=== PATIENT | male | born 1950 | race African-American/Black ===

== ENCOUNTER 2024-06-28 10:35 | Inpatient (IN) | payer OTHER ==
[2024-06-28 11:50] LABS: VENOUS BASE EXCESS 4.2 mmol/L (-2-2); VENOUS O2 SATURATION 32.9 % (70-80); VENOUS PCO2 50.2 mmHg (38-52); VENOUS PH 7.395 (7.310-7.410)
[2024-06-28] MEDS: ACETAMINOPHEN 1000 MG/100 ML BAG IVPB ONE (11:58)
[2024-06-28] MEDS: LACTATED RINGERS SOLUTION 1000 ML INFUS.BAG IV ONE ×2 (11:58→16:33)
[2024-06-28 12:02] LABS: INR 1.17 (0.83-1.09); PROTHROMBIN TIME (PATIENT) 13.4 SEC (9.7-13.0)
[2024-06-28 12:05] LABS: ACTIVATED PTT 25.8 SECONDS (25.2-36.5)
[2024-06-28 12:09] LABS: HEMATOCRIT 36.1 % (35.4-49); HEMOGLOBIN 12.2 GM/dL (11.7-16.9); MCH 30.7 pg (25.7-33.7); MCHC 33.8 g/dl (32.0-35.9); MEAN CELL VOLUME 90.8 fl (80-96); MEAN PLT VOLUME 8.7 fl (7.5-11.1); PLATELET COUNT 305 10^3/uL (134-434); RBC 3.97 M/mm3 (4.00-5.60); RDW 14.9 % (11.9-15.9); WHITE BLOOD COUNT 10.6 K/mm3 (4.0-10.0)
[2024-06-28 12:19] LABS: CHLORIDE 81 mmol/L (98-107); POTASSIUM 4.4 mmol/L (3.5-5.1); SODIUM 123 mmol/L (136-145)
[2024-06-28 12:21] LABS: CALCIUM 9.2 mg/dL (8.5-10.1)
[2024-06-28 12:22] LABS: ALBUMIN 2.4 g/dl (3.4-5.0); ANION GAP 11 mmol/L (4-13); BLOOD UREA NITROGEN 71.2 mg/dL (7-18); CO2 30 mmol/L (21-32); MAGNESIUM 3.7 mg/dL (1.8-2.4)
[2024-06-28 12:24] LABS: SGOT/AST 45 U/L (15-37); SGPT/ALT 124 U/L (13-61)
[2024-06-28 12:25] LABS: CREATININE 3.2 mg/dL (0.55-1.3); PHOSPHOROUS 3.2 mg/dL (2.5-4.9)
[2024-06-28 12:26] LABS: BILIRUBIN,TOTAL 0.9 mg/dL (0.2-1)
[2024-06-28 12:27] LABS: ALK PHOS 88 U/L (45-117)
[2024-06-28 12:35] LABS: LACTIC ACID 3.3 mmol/L (0.4-2.0)
[2024-06-28 12:51] LABS: GLUCOSE,RANDOM 575 mg/dL (74-106)
[2024-06-28] MEDS ORDERED: VANCOMYCIN HCL 1,500 MG in DEXTROSE 5%-WATER - 500 ML IVPB ONE (13:19)
[2024-06-28 13:48] LABS: EPI CELLS 28 /uL (0-25.1); HYALINE CASTS 4 /uL (0-3.1); URINE APPEARANCE TURBID; URINE BILIRUBIN NEGATIVE (NEGATIVE); URINE COLOR DK YELLOW; URINE GLUCOSE (UA) 3+ (NEGATIVE); URINE KETONE NEGATIVE (NEGATIVE); URINE LEUK ESTERASE TRACE (NEGATIVE); URINE NITRITE NEGATIVE (NEGATIVE); URINE PROTEIN 2+ (NEGATIVE); URINE WBC 50 /uL (0-25.8)
[2024-06-28] MEDS: INSULIN REGULAR HUMAN 100 UNITS/ML *VIAL IVPUSH ONE ×2 (14:03→17:35)
[2024-06-28] MEDS ORDERED: INSULIN ASPART SLIDING SCALE (NOVOLOG) 1 VIAL SQ ONE ×3 (14:03→22:12)
[2024-06-28 14:09] LABS: ANISOCYTOSIS 0; HELMET CELLS 0; HOWELL-JOLLY BODIES 0; MACROCYTOSIS 0; OVALOCYTE 0; ROULEAU 0; SICKELED CELLS 0; TARGET CELLS 0; TEAR DROP CELLS 0; TOXIC GRANULATION 0
[2024-06-28] MEDS ORDERED: PIPERACILLIN/TAZOB 2.25 GM 2.25 GM/50 ML BAG IVPB ONE (14:22)
[2024-06-28] MEDS: PIPERACILLIN/TAZOB 2.25 GM 2.25 GM in DEXTROSE 5%-WATER - 50 ML IVPB ONE (14:23)
[2024-06-28 16:07] LABS: URINE RBC 311.7 /uL (0-23.9)
[2024-06-28] MEDS: VANCOMYCIN PREMIX 1.5 GM 1,500 MG/300 ML BAG IVPB ONE (16:34)
[2024-06-28] MEDS: SODIUM CHLORIDE 0.45% 1,000 ML IV SCH (17:30)
[2024-06-28 17:58] LABS: VENOUS BASE EXCESS 2.6 mmol/L (-2-2); VENOUS O2 SATURATION 39.7 % (70-80); VENOUS PCO2 53.1 mmHg (38-52); VENOUS PH 7.354 (7.310-7.410)
[2024-06-28] MEDS ORDERED: PIPERACILLIN/TAZOB 2.25 GM 2.25 GM in DEXTROSE 5%-WATER - 50 ML IVPB SCH (18:00)
[2024-06-28 18:17] LABS: POTASSIUM 3.7 mmol/L (3.5-5.1)
[2024-06-28 18:19] LABS: BLOOD UREA NITROGEN 65.4 mg/dL (7-18); CALCIUM 7.9 mg/dL (8.5-10.1)
[2024-06-28 18:23] LABS: CREATININE 2.7 mg/dL (0.55-1.3)
[2024-06-28 19:12] LABS: HIV INTERPRETATION NEGATIVE (NEGATIVE)
[2024-06-28] MEDS: INSULIN ASPART SLIDING SCALE (NOVOLOG) 1 VIAL SQ SCH (22:11)
[2024-06-29] MEDS: PIPERACILLIN/TAZOB 2.25 GM 2.25 GM in DEXTROSE 5%-WATER - 50 ML IVPB SCH ×3 (00:12→22:08)
[2024-06-29] MEDS: SODIUM CHLORIDE 0.45%/POT 20 MEQ/1,000 ML INFUS.BAG IV SCH ×2 (06:58→22:00)
[2024-06-29] MEDS ORDERED: BUPIVACAINE HCL/PF 0.25% (2.5MG/ML) 10 ML VIAL ONE (08:22)
[2024-06-29] MEDS ORDERED: HEPARIN NA (PORCINE) 5,000 UNITS/ML 1ML VIAL ONE (08:23)
[2024-06-29] MEDS ORDERED: SEVOFLURANE 250 ML BTL ONE (10:14)
[2024-06-29] MEDS ORDERED: PROPOFOL 20 ML ONE (10:17)
[2024-06-29] MEDS ORDERED: DEXAMETHASONE SOD PHOSPHATE 4 MG/1 ML VIAL ONE (10:17)
[2024-06-29] MEDS ORDERED: ROCURONIUM BROMIDE 50 MG/5 ML SYRINGE ONE ×2 (10:17→11:23)
[2024-06-29] MEDS ORDERED: LIDOCAINE HCL/PF 2% SDV 5ML VIAL ONE (10:17)
[2024-06-29] MEDS ORDERED: MIDAZOLAM HCL 2 MG/2 ML SINGLE DOSE VIAL ONE ×3 (10:17→11:54)
[2024-06-29] MEDS ORDERED: ONDANSETRON 4 MG/2 ML VIAL IVPUSH PRN ×2 (10:20→12:32)
[2024-06-29] MEDS ORDERED: ACETAMINOPHEN 1000 MG/100 ML BAG IVPB PRN (10:21)
[2024-06-29] MEDS ORDERED: SODIUM CHLORIDE 1,000 ML IV SCH (10:30)
[2024-06-29] MEDS: cefOXitin SODIUM 2 GM VIAL (RESTRICTED TO ID) IVPB ONE ×2 (11:00)
[2024-06-29] MEDS: BUPIVACAINE HCL/PF 0.25% (2.5MG/ML) 10 ML VIAL IJ ONE ×2 (11:03)
[2024-06-29] MEDS ORDERED: ALBUMIN HUMAN 25% 100 ML VIAL IV SCH (11:15)
[2024-06-29] MEDS ORDERED: TRANEXAMIC ACID 1000 MG/10 ML VIAL ONE (11:25)
[2024-06-29] MEDS ORDERED: oxyCODONE HCL 5 MG TABLET PO PRN ×3 (12:32→15:51)
[2024-06-29] MEDS ORDERED: PROPOFOL 1,000,000 MCG/100 ML VIAL ONE (13:26)
[2024-06-29] MEDS: PROPOFOL 1,000,000 MCG/100 ML VIAL IVPB SCH (13:30)
[2024-06-29] MEDS: INSULIN ASPART SLIDING SCALE (NOVOLOG) 1 VIAL SQ SCH (13:33)
[2024-06-29] MEDS: SODIUM CHLORIDE 1,000 ML IV SCH (13:37)
[2024-06-29 13:54] LABS: ALBUMIN 2.6 g/dl (3.4-5.0)
[2024-06-29 13:55] LABS: HEMATOCRIT 28.3 % (35.4-49); HEMOGLOBIN 9.7 GM/dL (11.7-16.9); MCH 30.5 pg (25.7-33.7); MCHC 34.4 g/dl (32.0-35.9); MEAN CELL VOLUME 88.8 fl (80-96); PLATELET COUNT 232 10^3/uL (134-434); RBC 3.19 M/mm3 (4.00-5.60); RDW 14.9 % (11.9-15.9); WHITE BLOOD COUNT 10.3 K/mm3 (4.0-10.0)
[2024-06-29 13:56] LABS: BILIRUBIN,DIRECT 0.3 mg/dL (0.0-0.2)
[2024-06-29 13:58] LABS: BILIRUBIN,TOTAL 0.6 mg/dL (0.2-1)
[2024-06-29 13:59] LABS: TOT PROT 5.5 g/dl (6.4-8.2)
[2024-06-29 14:14] LABS: ALBUMIN 2.6 g/dl (3.4-5.0); BLOOD UREA NITROGEN 64.4 mg/dL (7-18); CALCIUM 7.9 mg/dL (8.5-10.1)
[2024-06-29 14:17] LABS: CREATININE 2.7 mg/dL (0.55-1.3)
[2024-06-29 14:19] LABS: BILIRUBIN,TOTAL 0.6 mg/dL (0.2-1); TOT PROT 5.5 g/dl (6.4-8.2)
[2024-06-29 15:00] LABS: ANISOCYTOSIS 1+; MACROCYTOSIS 0; OVALOCYTE 1+
[2024-06-29 15:01] LABS: PLATELET ESTIMATE ADEQUATE
[2024-06-29] MEDS: KCL 10 MEQ IVPB 10 MEQ/100 ML INFUS.BAG IVPB SCH ×2 (15:39→16:58)
[2024-06-29 15:46] LABS: HEMOGLOBIN 9.9 GM/dL (11.7-16.9); MCH 30.2 pg (25.7-33.7); MCHC 34.2 g/dl (32.0-35.9); MEAN CELL VOLUME 88.5 fl (80-96); MEAN PLT VOLUME 8.1 fl (7.5-11.1); PLATELET COUNT 228 10^3/uL (134-434); RBC 3.28 M/mm3 (4.00-5.60); RDW 14.7 % (11.9-15.9); WHITE BLOOD COUNT 10.8 K/mm3 (4.0-10.0)
[2024-06-29 16:26] LABS: ANISOCYTOSIS 0; MACROCYTOSIS 0; OVALOCYTE 1+
[2024-06-29] MEDS ORDERED: MUPIROCIN 2% TOPICAL OINTMENT FOR DECOLONIZATION NS SCH (22:00)
[2024-06-29] MEDS ORDERED: CHLORHEXIDINE GLUCONATE 4% CLEANSER FOR DECOLONIZATION TP SCH (22:00)
[2024-06-29] MEDS: MUPIROCIN 2% TOPICAL OINTMENT FOR DECOLONIZATION NS SCH (22:09)
[2024-06-29] MEDS: CHLORHEXIDINE GLUCONATE 4% CLEANSER FOR DECOLONIZATION TP SCH (22:09)
[2024-06-29] MEDS: HEPARIN NA (PORCINE) 5,000 UNITS/ML 1ML VIAL SQ SCH (22:09)
[2024-06-30] MEDS: ACETAMINOPHEN 1000 MG/100 ML BAG IVPB SCH (04:32)
[2024-06-30] MEDS: ALBUMIN HUMAN 5% 500 ML IV SOLUTION IV SCH ×2 (04:36→04:37)
[2024-06-30] MEDS ORDERED: PHENOL 177 ML SPRAY BOTTLE MM PRN (05:57)
[2024-06-30 07:33] LABS: HEMATOCRIT 29.9 % (35.4-49); HEMOGLOBIN 10.1 GM/dL (11.7-16.9); MCHC 33.9 g/dl (32.0-35.9); MEAN CELL VOLUME 88.3 fl (80-96); MEAN PLT VOLUME 8.3 fl (7.5-11.1); PLATELET COUNT 252 10^3/uL (134-434); RBC 3.39 M/mm3 (4.00-5.60); RDW 15.1 % (11.9-15.9); WHITE BLOOD COUNT 13.9 K/mm3 (4.0-10.0)
[2024-06-30 07:48] LABS: POTASSIUM 3.6 mmol/L (3.5-5.1)
[2024-06-30 07:53] LABS: CALCIUM 7.4 mg/dL (8.5-10.1)
[2024-06-30 07:54] LABS: ALBUMIN 2.2 g/dl (3.4-5.0)
[2024-06-30 07:57] LABS: CREATININE 1.7 mg/dL (0.55-1.3)
[2024-06-30 07:58] LABS: BILIRUBIN,TOTAL 0.6 mg/dL (0.2-1)
[2024-06-30 07:59] LABS: TOT PROT 5.2 g/dl (6.4-8.2)
[2024-06-30] MEDS: PANTOPRAZOLE SODIUM 40 MG VIAL IVPUSH SCH (09:32)
[2024-06-30 11:00] LABS: ANISOCYTOSIS 0; MACROCYTOSIS 0; OVALOCYTE 1+
[2024-06-30] MEDS: PIPERACILLIN/TAZOB 3.375 GM 3.375 GM in DEXTROSE 5%-WATER - 50 ML IVPB SCH (14:21)
[2024-06-30] MEDS: INSULIN ASPART SLIDING SCALE (NOVOLOG) 1 VIAL SQ SCH (21:42)
[2024-07-01 07:49] LABS: HEMATOCRIT 28.1 % (35.4-49); HEMOGLOBIN 9.4 GM/dL (11.7-16.9); MCH 30.1 pg (25.7-33.7); MCHC 33.6 g/dl (32.0-35.9); MEAN CELL VOLUME 89.6 fl (80-96); MEAN PLT VOLUME 7.8 fl (7.5-11.1); PLATELET COUNT 263 10^3/uL (134-434); RBC 3.13 M/mm3 (4.00-5.60); RDW 14.8 % (11.9-15.9); WHITE BLOOD COUNT 15.7 K/mm3 (4.0-10.0)
[2024-07-01 08:02] LABS: POTASSIUM 3.7 mmol/L (3.5-5.1)
[2024-07-01 08:06] LABS: CALCIUM 7.3 mg/dL (8.5-10.1)
[2024-07-01 08:07] LABS: BLOOD UREA NITROGEN 23.2 mg/dL (7-18)
[2024-07-01 08:09] LABS: CREATININE 1.3 mg/dL (0.55-1.3)
[2024-07-01 08:11] LABS: BILIRUBIN,TOTAL 0.5 mg/dL (0.2-1); TOT PROT 5.1 g/dl (6.4-8.2)
[2024-07-01 09:23] LABS: ANISOCYTOSIS 0; MACROCYTOSIS 0; OVALOCYTE 1+
[2024-07-02 19:53] VITALS: RESP 18
[2024-07-02] MEDS ORDERED: PHENOL 177 ML SPRAY BOTTLE MM PRN (20:31)
[2024-07-02] MEDS: PIPERACILLIN/TAZOB 3.375 GM 3.375 GM in DEXTROSE 5%-WATER - 50 ML IVPB SCH (21:07)
[2024-07-02] MEDS ORDERED: MUPIROCIN 2% TOPICAL OINTMENT FOR DECOLONIZATION NS SCH (22:00)
[2024-07-02] MEDS ORDERED: CHLORHEXIDINE GLUCONATE 4% CLEANSER FOR DECOLONIZATION TP SCH (22:00)
[2024-07-02] MEDS: HEPARIN NA (PORCINE) 5,000 UNITS/ML 1ML VIAL SQ SCH (22:05)
[2024-07-02] MEDS: SODIUM CHLORIDE 1,000 ML IV SCH (22:10)
[2024-07-03] MEDS: TAMSULOSIN HCL 0.4 MG CAP PO SCH (09:58)
[2024-07-03] MEDS: PANTOPRAZOLE SODIUM 40 MG VIAL IVPUSH SCH (09:58)
[2024-07-03] MEDS: SODIUM CHLORIDE 1,000 ML IV SCH (15:08)
[2024-07-04 09:14] LABS: CALCIUM 7.3 mg/dL (8.5-10.1)
[2024-07-04 09:15] LABS: BLOOD UREA NITROGEN 10.6 mg/dL (7-18)
[2024-07-04 09:18] LABS: CREATININE 0.9 mg/dL (0.55-1.3)
[2024-07-04 09:19] LABS: BILIRUBIN,TOTAL 0.7 mg/dL (0.2-1)
[2024-07-04 09:20] LABS: TOT PROT 5.2 g/dl (6.4-8.2)
[2024-07-04] MEDS: PANTOPRAZOLE 40 MG TABLET PO SCH (09:35)
[2024-07-04 09:45] LABS: BASO % 0.6 % (0-2.0); EOS % 0.8 % (0-4.5); HEMATOCRIT 30.8 % (35.4-49); HEMOGLOBIN 10.3 GM/dL (11.7-16.9); LYMPH % 10.3 % (8-40); MCH 29.7 pg (25.7-33.7); MCHC 33.6 g/dl (32.0-35.9); MEAN CELL VOLUME 88.4 fl (80-96); MEAN PLT VOLUME 7.7 fl (7.5-11.1); MONO % 7.5 % (3.8-10.2); NEUT % 80.8 % (42.8-82.8); PLATELET COUNT 303 10^3/uL (134-434); RBC 3.48 M/mm3 (4.00-5.60); RDW 15.2 % (11.9-15.9); WHITE BLOOD COUNT 14.7 K/mm3 (4.0-10.0)
[2024-07-04 10:05] LABS: BLOOD UREA NITROGEN 10.8 mg/dL (7-18); CALCIUM 7.3 mg/dL (8.5-10.1)
[2024-07-04 10:09] LABS: CREATININE 0.9 mg/dL (0.55-1.3)
[2024-07-04 10:10] LABS: BILIRUBIN,TOTAL 0.7 mg/dL (0.2-1); TOT PROT 5.3 g/dl (6.4-8.2)
[2024-07-04 10:39] LABS: ANISOCYTOSIS 2+; MACROCYTOSIS 2+
[2024-07-04] MEDS: POTASSIUM CHLORIDE TABS 20 MEQ TABLET.ER (FP) PO ONE (11:36)
[2024-07-04] MEDS: POTASSIUM CHLORIDE ORAL LIQUID 20 MEQ/15 ML PO ONE (18:58)
[2024-07-05 09:44] LABS: HEMATOCRIT 33.1 % (35.4-49); HEMOGLOBIN 11.2 GM/dL (11.7-16.9); MCH 29.8 pg (25.7-33.7); MCHC 33.8 g/dl (32.0-35.9); MEAN CELL VOLUME 88.3 fl (80-96); MEAN PLT VOLUME 7.8 fl (7.5-11.1); PLATELET COUNT 390 10^3/uL (134-434); RBC 3.75 M/mm3 (4.00-5.60); RDW 15.3 % (11.9-15.9); WHITE BLOOD COUNT 14.7 K/mm3 (4.0-10.0)
[2024-07-05 10:14] LABS: POTASSIUM 3.8 mmol/L (3.5-5.1)
[2024-07-05 10:23] LABS: MAGNESIUM 1.6 mg/dL (1.8-2.4)
[2024-07-05 10:26] LABS: ALBUMIN 2.4 g/dl (3.4-5.0); CALCIUM 8.5 mg/dL (8.5-10.1)
[2024-07-05 10:27] LABS: BILIRUBIN,TOTAL 0.8 mg/dL (0.2-1)
[2024-07-05 10:28] LABS: TOT PROT 6.2 g/dl (6.4-8.2)
[2024-07-05 11:08] LABS: ANISOCYTOSIS 0; HELMET CELLS 0; HOWELL-JOLLY BODIES 0; MACROCYTOSIS 0; OVALOCYTE 0; ROULEAU 0; SICKELED CELLS 0; TARGET CELLS 0; TEAR DROP CELLS 0; TOXIC GRANULATION 0
[2024-07-05 15:38] VITALS: BMI 26.6
[2024-07-05] MEDS: MAGNESIUM SULF 50% (8.12 MEQ/2 ML-1 GM VIAL) IVPB ONE (15:47)
[2024-07-07 10:12] LABS: HEMATOCRIT 32.1 % (35.4-49); HEMOGLOBIN 10.8 GM/dL (11.7-16.9); MCH 29.6 pg (25.7-33.7); MCHC 33.7 g/dl (32.0-35.9); MEAN CELL VOLUME 87.8 fl (80-96); MEAN PLT VOLUME 7.7 fl (7.5-11.1); PLATELET COUNT 445 10^3/uL (134-434); RBC 3.66 M/mm3 (4.00-5.60); RDW 15.3 % (11.9-15.9); WHITE BLOOD COUNT 11.3 K/mm3 (4.0-10.0)
[2024-07-07 15:52] VITALS: BP 157/75; PULSE 88; TEMP 97.7
== END 2024-07-07 17:24 | disposition home or self-care (01) | DRG 853 ==
LOC: JER 10:35 → JERBED 16:29 → J4W 23:49 → JICU 06-29 13:15 → J8W 07-02 20:27
PROVIDERS: ADMIT Family Medicine; ATTEND Family Medicine
PROC: 0W9G4ZZ Drainage of Peritoneal Cavity, Percutaneous Endoscopic Approach (ICD-10-PCS; 2024-06-29)
PROC: 0FT44ZZ Resection of Gallbladder, Percutaneous Endoscopic Approach (ICD-10-PCS; principal; 2024-06-29 09:30)
DX: A41.89 Other specified sepsis (principal); J18.9 Pneumonia, unspecified organism; J96.01 Acute respiratory failure with hypoxia; K65.1 Peritoneal abscess; K80.00 Calculus of gallbladder with acute cholecystitis without obstruction; E87.1 Hypo-osmolality and hyponatremia; J98.11 Atelectasis; N17.9 Acute kidney failure, unspecified; E87.20 Acidosis, unspecified; I10 Essential (primary) hypertension; E78.5 Hyperlipidemia, unspecified; K82.A1 Gangrene of gallbladder in cholecystitis; E11.65 Type 2 diabetes mellitus with hyperglycemia; R19.7 Diarrhea, unspecified; E87.6 Hypokalemia
CPT/HCPCS: 36415; 70450-TC; 71045-TC-FY; 71250-TC; 74176-TC; 76705-TC; 76775-TC; 80048; 80053; 80076; 81003; 82010; 82272; 82550; 82803; 82962; 83605; 83631; 83690; 83735; 83930; 83993; 84100; 84484; 85025; 85027; 85379; 85610; 85730; 86140; 86713; 86803; 86850; 86900; 86901; 87040; 87045; 87046; 87077; 87086; 87205; 87209; 87324; 87389; 87449; 87635; 87899; 88300-TC; 88304-TC; 93005; 93010; 94002; 94760; 97116-GP; 97162-GP; 99285-25; J0131; J1644; J3480